=== PATIENT | female | born 1980 | race Caucasian/White ===

== ENCOUNTER 2018-03-26 12:17 | Emergency (ER) | payer SELFPAY ==
[2018-03-26 13:13] LABS: Absolute Lymphocytes (CBC) 1.8 K/uL (0.7-4.9); Absolute Monocytes 0.4 K/uL (0.1-1.3); Absolute Neutrophil 5.3 K/uL (1.8-8.0); Basophils % 0.8 % (0-1.3); Eosinophils % 2.3 % (0-4.4); Hematocrit 42.8 % (36.0-45.0); Lymphocytes % 23.3 % (15.3-44.8); MCH 30.6 pg (27.0-35.0); MPV 9.5 fL (7.6-11.3); Monocytes % 5.2 % (3.3-12.3); Protime INR 0.98
[2018-03-26 13:26] LABS: ALT/SGPT 20 U/L (12-78); AST/SGOT 14 U/L (15-37); Albumin 3.8 g/dL (3.4-5.0); Alkaline Phosphatase 60 U/L (45-117); BUN Blood Urea Nitrogen 10 mg/dL (7-18); Bicarbonate 26 mmol/L (21-32); Bilirubin Direct < 0.1 mg/dL (0-0.2); Bilirubin Total 0.3 mg/dL (0.2-1.0); Glucose Level 103 mg/dL (74-106); NT PRO-BNP 40 pg/mL (<125); Potassium 3.7 mmol/L (3.5-5.1); Protein, Total 7.2 g/dL (6.4-8.2); Sodium Level 140 mmol/L (136-145); Troponin (Emerg Dept Use Only) < 0.02 ng/mL (0.0-0.045)
--- NOTE | 2018-03-26 13:36 | RAD REPORT ---
EXAM DESCRIPTION: RAD - Chest Single View - 03/26/2018 1:21 pm CLINICAL HISTORY: CHEST PAIN Chest pain. COMPARISON: No comparisons FINDINGS: Portable technique limits examination quality. The lungs are grossly clear. The heart is normal in size. No displaced fractures. IMPRESSION: No acute intrathoracic process suspected.
[2018-03-26] MEDS ORDERED: LIDOCAINE VISCOUS 2% SOLN 15 ML UDC ONE (14:00)
[2018-03-26] MEDS ORDERED: MAGNES/ALUMIN/SIMET 30ML UCUP ONE (14:01)
[2018-03-26] MEDS ORDERED: KETOROLAC 30 MG/ML INJ ONE (14:01)
[2018-03-26 14:50] LABS: Urine Blood NEGATIVE (NEG); Urine Glucose NEGATIVE (NEG); Urine Protein NEGATIVE (NEG); Urine pH 6.5 (5.0-7.0)
--- NOTE | 2018-03-26 17:10 | ER ---
Nurse's Notes [facility] Name: Yolanda Saucedo Age: 37 yrs Sex: Female : 1980 Arrival Date: 03/26/2018 Time: 12:20 Bed 13 Private MD: None, None Diagnosis: Other chest pain Presentation: 03/26 12:23 Presenting complaint: Patient states: "I had a really weird fluttery sensation in my aj1 chest. It made me feel really weird. I do not feel right now. I'm not in pain. My arm and my jaw is tight. I have a light burning sensation in my chest" Reports tightness in left arm and jaw. Transition of care: patient was not received from another setting of care. Onset of symptoms was March 26, 2018 at 10:30. Risk Assessment: Do you want to hurt yourself or someone else? Patient reports no desire to harm self or others. Initial Sepsis Screen: Does the patient meet any 2 criteria? No. Patient's initial sepsis screen is negative. Does the patient have a suspected source of infection? No. Patient's initial sepsis screen is negative. Care prior to arrival: None. 12:23 Method Of Arrival: Ambulatory aj1 12:23 Acuity: MARILU 3 aj1 Triage Assessment: 12:26 General: Appears in no apparent distress. uncomfortable, Behavior is calm, cooperative, aj1 appropriate for age. Pain: Complains of pain in left jaw and left arm Pain currently is 2 out of 10 on a pain scale. Neuro: Level of Consciousness is awake, alert, obeys commands. Cardiovascular: Patient's skin is warm and dry. Respiratory: Airway is patent Respiratory effort is even, unlabored, Respiratory pattern is regular, symmetrical. 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 - Social history:: Smoking status: Patient/guardian denies using tobacco. - Ebola Screening: : Patient denies travel to an Ebola-affected area in the 21 days before illness onset. Screenin:23 Abuse screen: Denies threats or abuse. Denies injuries from another. Nutritional hj screening: No deficits noted. Tuberculosis screening: No symptoms or risk factors identified. Fall Risk None identified. Assessment: 12:23 General: Appears in no apparent distress. uncomfortable, Behavior is cooperative, hj appropriate for age, anxious. Pain: Complains of pain in chest and left arm and face and left jaw. Neuro: Level of Consciousness is awake, alert, obeys commands, Oriented to person, place, time, situation, Appropriate for age. Cardiovascular: Capillary refill < 3 seconds Patient's skin is warm and dry. Respiratory: Airway is patent Respiratory effort is even, unlabored, Respiratory pattern is regular, symmetrical. GI: No signs and/or symptoms were reported involving the gastrointestinal system. : No signs and/or symptoms were reported regarding the genitourinary system. EENT: No signs and/or symptoms were reported regarding the EENT system. Derm: No signs and/or symptoms reported regarding the dermatologic system. Musculoskeletal: No signs and/or symptoms reported regarding the musculoskeletal system. 13:36 Reassessment: Patient and/or family updated on plan of care and expected duration. Pain hj level reassessed. Patient is alert, oriented x 3, equal unlabored respirations, skin warm/dry/pink. awaiting results and POC;. 14:30 Reassessment: Patient and/or family updated on plan of care and expected duration. Pain hj level reassessed. Patient is alert, oriented x 3, equal unlabored respirations, skin warm/dry/pink. Patient states symptoms have improved. 15:10 Reassessment: Patient and/or family updated on plan of care and expected duration. Pain hj level reassessed. Patient is alert, oriented x 3, equal unlabored respirations, skin warm/dry/pink. awaiting POC;. Vital Signs: 12:26 BP 126 / 83; Pulse 78; Resp 18; Temp 98.0(TE); Pulse Ox 99% on R/A; Weight 90.72 kg aj1 (R); Height 5 ft. 0 in. (152.40 cm) (R); Pain 2/10; 13:38 BP 125 / 80; Pulse 74; Resp 18; Pulse Ox 100% on R/A; hj 14:51 BP 117 / 83; Pulse 60; Resp 16; Pulse Ox 99% on R/A; mt 15:10 BP 120 / 84; Pulse 66; Resp 18; Pulse Ox 100% on R/A; hj 12:26 Body Mass Index 39.06 (90.72 kg, 152.40 cm) aj1 ED Course: 12:20 Patient arrived in ED. mr 12:21 None, None is Private Physician. mr 12:25 Triage completed. aj1 12:26 Arm band placed on Patient placed in an exam room. aj1 12:26 Patient has correct armband on for positive identification. Placed in gown. Bed in low hj position. Call light in reach. Side rails up X 1. Adult w/ patient. 12:30 Initial lab(s) drawn, by me, sent to lab. EKG done, by ED staff, reviewed by Prakash VARGHESE. Inserted saline lock: 22 gauge in right antecubital area, using aseptic technique. Blood collected. 12:34 Prakash Christine PA is PHCP. cp 12:34 Prakash Go MD is Attending Physician. cp 12:35 Bryce Martinez, CHANG is Primary Nurse. hj 13:22 XRAY Chest (1 view) In Process Unspecified. EDMS 17:20 No provider procedures requiring assistance completed. IV discontinued, intact, hj bleeding controlled, No redness/swelling at site. Pressure dressing applied. Administered Medications: 13:49 Drug: TORadol 30 mg Route: IVP; Site: right antecubital; hj 14:13 Follow up: Response: No adverse reaction hj 13:49 Drug: GI Cocktail without - (Maalox Suspension 30 ml, Lidocaine Liquid 2 % 15 hj ml) Route: PO; 14:13 Follow up: Response: No adverse reaction Outcome: 17:10 Discharge ordered by MD. cp 17:21 Discharged to home ambulatory, with family. hj 17:21 Condition: stable 17:21 Discharge instructions given to patient, family, Instructed on discharge instructions, follow up and referral plans. medication usage, Demonstrated understanding of instructions, follow-up care, medications, Prescriptions given X 1. 17:21 Patient left the ED. hj Signatures: Dispatcher [employer] EDMS Annemarie Smith RN RN aj1 Jessy Rocha mr Bryce Martinez, Prakash Sarah RN, PA PA cp Thompson, Moriah mt
--- NOTE | 2018-03-26 17:10 | EDPHYS ---
Physician Documentation [facility] Name: Yolanda Saucedo Age: 37 yrs Sex: Female : 1980 Arrival Date: 03/26/2018 Time: 12:20 Bed 13 Private MD: None, None ED Physician Prakash Go HPI: 03/26 12:50 This 37 yrs old Female presents to ER via Ambulatory with complaints of Chest cp Discomfort. 12:50 The patient or guardian reports chest pain that is located primarily in the anterior cp chest wall. 12:50 The pain does not radiate. Duration: The patient or guardian reports a single episode, cp that is still ongoing, but improving. 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 - Social history:: Smoking status: Patient/guardian denies using tobacco. - Ebola Screening: : Patient denies travel to an Ebola-affected area in the 21 days before illness onset. ROS: 12:55 Constitutional: Negative for body aches, chills, fever, poor PO intake. cp 12:55 Eyes: Negative for injury, pain, redness, and discharge. cp 12:55 ENT: Negative for drainage from ear(s), ear pain, sore throat, difficulty swallowing, difficulty handling secretions. 12:55 Cardiovascular: Positive for chest pain, Negative for edema, palpitations. 12:55 Respiratory: Negative for cough, shortness of breath, wheezing. 12:55 Abdomen/GI: Negative for abdominal pain, nausea, vomiting, and diarrhea. 12:55 Back: Negative for radiated pain. 12:55 : Negative for urinary symptoms. 12:55 Skin: Negative for cellulitis, rash. 12:55 Neuro: Negative for altered mental status, dizziness, headache, numbness, weakness. 12:55 All other systems are negative. Exam: 12:50 ECG was reviewed by the Attending Physician. cp 13:02 Constitutional: The patient appears in no acute distress, alert, awake, cp non-diaphoretic, non-toxic, well developed, well nourished. 13:02 Head/Face: Normocephalic, atraumatic. Eyes: Pupils equal round and reactive to light, cp extra-ocular motions intact. Lids and lashes normal. Conjunctiva and sclera are non-icteric and not injected. Cornea within normal limits. Periorbital areas with no swelling, redness, or edema. ENT: Nares patent. No nasal discharge, no septal abnormalities noted. Tympanic membranes are normal and external auditory canals are clear. Oropharynx with no redness, swelling, or masses, exudates, or evidence of obstruction, uvula midline. Mucous membranes moist. Neck: Trachea midline, no thyromegaly or masses palpated, and no cervical lymphadenopathy. Supple, full range of motion without nuchal rigidity, or vertebral point tenderness. No Meningismus. Chest/axilla: Normal chest wall appearance and motion. Nontender with no deformity. No lesions are appreciated. 13:02 Cardiovascular: Rate: normal, Rhythm: regular, Pulses: Pulses are 2+ in right radial artery and left radial artery. Heart sounds: murmur, not appreciated, Edema: is not appreciated, JVD: is not appreciated. 13:02 Respiratory: the patient does not display signs of respiratory distress, Respirations: normal, no use of accessory muscles, no retractions, no splinting, no tachypnea, labored breathing, is not present, Breath sounds: are clear throughout, no decreased breath sounds, no stridor, no wheezing. 13:02 Abdomen/GI: Inspection: abdomen appears normal, Bowel sounds: active, all quadrants, Palpation: abdomen is soft and non-tender, in all quadrants. 13:02 Back: pain, is absent, ROM is normal. 13:02 Musculoskeletal/extremity: Exam is negative for calf tenderness, decreased range of motion, edema, injury. 13:02 Skin: cellulitis, is not appreciated, no rash present. 13:02 Neuro: Orientation: to person, place \T\ time. Mentation: is normal, Cerebellar function: is grossly normal, Motor: moves all fours, strength is normal, Sensation: is normal. 17:11 ECG was reviewed by the Attending Physician. Vital Signs: 12:26 BP 126 / 83; Pulse 78; Resp 18; Temp 98.0(TE); Pulse Ox 99% on R/A; Weight 90.72 kg aj1 (R); Height 5 ft. 0 in. (152.40 cm) (R); Pain 2/10; 13:38 BP 125 / 80; Pulse 74; Resp 18; Pulse Ox 100% on R/A; hj 14:51 BP 117 / 83; Pulse 60; Resp 16; Pulse Ox 99% on R/A; mt 15:10 BP 120 / 84; Pulse 66; Resp 18; Pulse Ox 100% on R/A; hj 12:26 Body Mass Index 39.06 (90.72 kg, 152.40 cm) aj1 MDM: 12:36 Patient medically screened. 17:08 Data reviewed: vital signs, nurses notes, lab test result(s), EKG, radiologic studies, cp plain films. 17:08 Test interpretation: by ED physician or midlevel provider: ECG, plain radiologic cp studies. 03/26 12:45 Order name: Basic Metabolic Panel; Complete Time: 13:32 03/26 12:45 Order name: CBC with Diff; Complete Time: 13:32 03/26 12:45 Order name: LFT's; Complete Time: 13:32 03/26 12:45 Order name: Magnesium; Complete Time: 13:32 03/26 12:45 Order name: NT PRO-BNP; Complete Time: 13:32 03/26 12:45 Order name: PT-INR; Complete Time: 13:32 03/26 12:45 Order name: Troponin (emerg Dept Use Only); Complete Time: 13:32 03/26 12:45 Order name: XRAY Chest (1 view); Complete Time: 13:50 03/26 13:50 Interpretation: Report review. 03/26 14:24 Order name: Urine Dipstick--Ancillary (enter results) 03/26 14:24 Order name: Urine --Ancillary (enter results) 03/26 15:29 Order name: Troponin I 03/26 12:45 Order name: EKG; Complete Time: 12:46 03/26 12:45 Order name: Cardiac monitoring; Complete Time: 12:49 03/26 12:45 Order name: EKG - Nurse/Tech; Complete Time: 12:49 03/26 12:45 Order name: IV Saline Lock; Complete Time: 14:13 03/26 12:45 Order name: Labs collected and sent; Complete Time: 14:13 cp 03/26 12:45 Order name: O2 Per Protocol; Complete Time: 12:50 cp 03/26 12:45 Order name: O2 Sat Monitoring; Complete Time: 12:50 cp 03/26 12:45 Order name: Urine Dipstick-Ancillary (obtain specimen); Complete Time: 14:12 cp 03/26 12:45 Order name: Urine Test (obtain specimen); Complete Time: 14:12 cp 03/26 15:29 Order name: EKG; Complete Time: 15:30 cp 03/26 15:29 Order name: EKG - Nurse/Tech; Complete Time: 16:27 cp EC:50 Rate is 64 beats/min. Rhythm is regular. OR interval is normal. QRS interval is cp prolonged at 104 msec. QT interval is normal. Interpreted by me. Reviewed by me. 17:11 Rate is 53 beats/min. Rhythm is regular. OR interval is normal. QRS interval is cp prolonged at 102 msec. QT interval is normal. Interpreted by me. Reviewed by me. Administered Medications: 13:49 Drug: TORadol 30 mg Route: IVP; Site: right antecubital; hj 14:13 Follow up: Response: No adverse reaction 13:49 Drug: GI Cocktail without - (Maalox Suspension 30 ml, Lidocaine Liquid 2 % 15 hj ml) Route: PO; 14:13 Follow up: Response: No adverse reaction Disposition: 03/27 08:26 Co-signature as Attending Physician, Prakash Go MD I agree with the assessment and [facility] plan of care. Disposition: 03/26/18 17:10 Discharged to Home. Impression: Other chest pain. - Condition is Stable. - Discharge Instructions: Nonspecific Chest Pain, Aspirin and Your Heart. - Prescriptions for Protonix 40 mg Oral Tablet - take 1 tablet by ORAL route once daily; 30 tablet. - Medication Reconciliation Form, Thank You Letter, Antibiotic Education, Prescription Opioid Use form. - Follow up: Private Physician; When: 2 - 3 days; Reason: Recheck today's complaints. - Problem is new. - Symptoms have improved. Signatures: Dispatcher [employer] EDVA Annemarie Smith RN RN aj Prakash Go MD MD cha Joaquin, Henry, RN RN Prakash Madrid PA PA cp Corrections: (The following items were deleted from the chart) 03/26 14: 14:25 UA MICROSCOPIC+U.LAB.BRZ ordered. EDMS EDMS 17:21 17:10 03/26/2018 17:10 Discharged to Home. Impression: Other chest pain. Condition is hj Stable. Forms are Medication Reconciliation Form, Thank You Letter, Antibiotic Education, Prescription Opioid Use. Follow up: Private Physician; When: 2 - 3 days; Reason: Recheck today's complaints. Problem is new. Symptoms have improved. cp 03/27 01:24 03/26 12:50 The chest pain is described as burning, cp cp
[2018-03-26 18:25] VITALS: TEMP 98
[2018-03-26 18:30] VITALS: BP 120/84; O2SAT 100
--- NOTE | 2018-03-27 07:36 | EKG ---
Test Date: 2018-03-26 Test Time: 16:13:47 Full Stack Developer: SHYANN MEASUREMENT RESULTS: Intervals: Rate: 53 RI: 148 QRSD: 102 QT: 426 QTc: 399 [place]: P: 56 RI: 148 QRS: 74 T: 50 INTERPRETIVE STATEMENTS: Sinus bradycardia Otherwise normal ECG No previous ECG available for comparison Electronically Signed On 03-27-18 07:34:08 MANAGER LOGISTIC by Mark Camacho
--- NOTE | 2018-03-27 07:37 | EKG ---
Test Date: 2018-03-26 Test Time: 12:44:52 Mammographer: TOBY MEASUREMENT RESULTS: Intervals: Rate: 64 PA: 150 QRSD: 104 QT: 406 QTc: 418 [place]: P: 59 PA: 150 QRS: 75 T: 51 INTERPRETIVE STATEMENTS: Normal sinus rhythm Normal ECG No previous ECG available for comparison Electronically Signed On 03-27-18 07:36:50 SENIOR ASSISTANT MANAGER by Mark Camacho
== END 2018-03-26 17:21 | disposition home or self-care (01) ==
LOC: ER 12:17
DX: R07.89 Other chest pain (principal)
CPT/HCPCS: 36415; 71045; 80048; 80076; 81003; 81025; 83735; 83880; 84484; 85025; 85610; 93005; 96374; 99284

== ENCOUNTER → 2023-05-26 | Emergency (ER) | payer SELFPAY ==
[~2023-05-26] MED LIST: MORPHINE 4 MG/ML SYR ONE; ONDANSETRON 4 MG/2 ML VIAL ONE
--- OUTSIDE RECORDS SUMMARY | 2023-05-26 13:27 | XMS REPORT | Continuity of Care Document ---
Author Name Unknown Address [address] [place] [address] [facility] Address [address] [place] [address] Care Team Providers Care Gate Watchman Name Role Phone Pcp, Patient Does Not Have A Primary Care Physic tylor Brian Molina MD Attending Clinician + [phone] JIMBO BOYD Attending Clinician Unavailable Jimbo Boyd MD Attending Clinician [phone] BRIAN MOLINA Attending Clinician Unavaila [facility] Provider, [facility] Attending Clinician Un available [facility] Anaya DO Attending Clinician [phone] MARCIO KEITA Attending Clinician Unavailable Karen Wilkins Attending Clinician [phone] Doctor Unassigned, [place] Attending Clinician U Miriam Bautista MD Attending Clinician [phone] Marcio Keita MD Attending Clinician [phone] Jose Juan [facility] Resident Attending Clinician UnavailLisa Solomon Attending Clinician [phone]- [phone] JIMBO BOYD Admitting Clinician Unavailable Payers Payer Name Policy Type Policy Number Effective Date Expirati on Date Source Problems Condition Name Condition Details Condition Category Status Onset Date Resolution Date Last Treatment Date Treating Clinician Comments Source Flatulence , eructation and gas pain Flatulence , eructation and gas pain Disease Active 11-23 00:00: 00 [facility] GERD (gastroeso phageal reflux disease) GERD (gastroeso phageal reflux disease) Disease Active 11-23 00:00: 00 [facility] Obesity (BMI 30-39.9) Obesity (BMI 30-39.9) Disease Active 01-07 00:00: 00 [facility] Endometrio ma Endometrio ma Disease Active 07-27 00:00: 00 [facility] Endometrio ma Endometrio ma Disease Active 07-27 00:00: 00 [facility] S/P hysterecto my S/P hysterecto my Disease Active 07-27 00:00: 00 [facility] Adnexal mass Adnexal mass Disease Active 10-14 00:00: 00 [facility] Anxiety Anxiety Disease Active 10-14 00:00: 00 [facility] Depression Depression Disease Active 10-14 00:00: 00 [facility] Complex ovarian cyst Complex ovarian cyst Disease Active 10-14 00:00: 00 [facility] Mixed hyperlipid emia Mixed hyperlipid emia Disease Active [facility] Impaired fasting glucose Impaired fasting glucose Disease Active [facility] Allergies, Adverse Reactions, Alerts Allergy Name Allergy Type Status Severity Reaction(s) Onset Date Inactive Date Treating Clinician Comments Source Hydrocod one Propensi ty to adverse reaction s Active Nausea and/or Vomiting 10-02 00:00: 00 "make me sick" [facility] HYDROCOD ONE DRUG INGREDI Active N/V 10-02 00:00: 00 [facility] Social History Social Habit Start Date Stop Date Quantity Comments Source [facility] to SARS-CoV-2 (event) 2021-02-08 00:00:00 2021-03-10 22:45:00 Not sure [facility] History of Social function 2020-11-18 00:00:00 2020-11-18 00:00:00 [facility] Alcohol intake 2019-08-29 00:00:00 2019-08-29 00:00:00 [facility] Tobacco use and exposure 2018-06-11 00:00:00 2018-06-11 00:00:00 Smokeless tobacco non-user [facility] Sex Assigned At 1980 00:00:00 1980 00:00:00 [facility] Smoking Status Start Date Stop Date Source Never smoked tobacco [facility] Medications Ordered Medication Name Filled Medication Name Start Date Stop Date Current Medication? Ordering Clinician Indication Dosage Frequency Signature (SIG) Comments Components Source FLUTICASONE PROPIONATE 50 mcg/actuati on nasal spray 2020-05 00:00: 00 Yes [id number] INSTILL TWO (2) SPRAYS INTO EACH NOSTIRL DAILY. [facility] maalox:diph enhydrAMINE :lidocaine 2 % viscous 1:1:1 (FIRST-MOUT HWASH BLM) oral suspension 15 mL 2020-05 08:00: 00 03-11 06:57 :00 No 15mL 15 mL, Oral, ONCE, 1 dose, On Tue03/11/21 at 0200, SUSAN [facility] traZODone 50 mg tablet 11-18 00:00: 00 Yes [id number] 25mg Take 0.5-1 tablets by mouth at bedtime as needed for Insomnia. [facility] famotidine 20 mg tablet 11-18 00:00: 00 Yes [id number] 20mg Take 1 tablet by mouth 2 (two) times daily. [facility] Simethicone 180 mg Cap 11-18 00:00: 00 Yes [id number] 1{capsu le} Take 1 capsule by mouth 2 (two) times daily as needed (gas). [facility] traZODone 50 mg tablet 11-18 00:00: 00 Yes [id number] 25mg Take 0.5-1 tablets by mouth at bedtime as needed for Insomnia. [facility] famotidine 20 mg tablet 11-18 00:00: 00 Yes [id number] 20mg Take 1 tablet by mouth 2 (two) times daily. [facility] Sim[facility]one 180 mg Cap 1-0 7-20 00:00: 00 Yes [id number] 1{capsu le} Take 1 capsule by mouth 2 (two) times daily as needed (gas). [facility] traZODone 50 mg tablet 1-0 7-20 00:00: 00 Yes [id number] 25mg Take 0.5-1 tablets by mouth at bedtime as needed for Insomnia. [facility] fam[facility] mg tablet 2020-0 7-20 00:00: 00 Yes [id number] 20mg Take 1 tablet by mouth 2 (two) times daily. [facility] Simethicone 180 mg Cap 2020-0 7-20 00:00: 00 Yes [id number] 1{capsu le} Take 1 capsule by mouth 2 (two) times daily as needed (gas). [facility] traZODone 50 mg tablet 2020-0 7-20 00:00: 00 Yes [id number] 25mg Take 0.5-1 tablets by mouth at bedtime as needed for Insomnia. [facility] famotidine 20 mg tablet 1-0 7-20 00:00: 00 Yes [id number] 20mg Take 1 tablet by mouth 2 (two) times daily. [facility] Simethicone 180 mg Cap 2020-0 7-20 00:00: 00 Yes [id number] 1{capsu le} Take 1 capsule by mouth 2 (two) times daily as needed (gas). [facility] traZODone 50 mg tablet 1-0 7-20 00:00: 00 Yes [id number] 25mg Take 0.5-1 tablets by mouth at bedtime as needed for Insomnia. [facility] famotidine 20 mg tablet 1-0 7-20 00:00: 00 Yes [id number] 20mg Take 1 tablet by mouth 2 (two) times daily. [facility] Simethicone 180 mg Cap 1-0 7-20 00:00: 00 Yes [id number] 1{capsu le} Take 1 capsule by mouth 2 (two) times daily as needed (gas). [facility] hydrOXYzine 10 mg tablet 1-0 3-15 00:00: 00 Yes [id number] 10mg Take 1 tablet by mouth every 8 (eight) hours as needed for Anxiety. [facility] hydrOXYzine 10 mg tablet 1-0 3-15 00:00: 00 Yes [id number] 10mg Take 1 tablet by mouth every 8 (eight) hours as needed for Anxiety. [facility] hydrOXYzine 10 mg tablet 1-0 3-15 00:00: 00 Yes [id number] 10mg Take 1 tablet by mouth every 8 (eight) hours as needed for Anxiety. [facility] hydrOXYzine 10 mg tablet 1-0 3-15 00:00: 00 Yes [id number] 10mg Take 1 tablet by mouth every 8 (eight) hours as needed for Anxiety. [facility] hydrOXYzine 10 mg tablet 1-0 3-15 00:00: 00 Yes [id number] 10mg Take 1 tablet by mouth every 8 (eight) hours as needed for Anxiety. [facility] hydrOXYzine 10 mg tablet 1-0 3-15 00:00: 00 Yes [id number] 10mg Take 1 tablet by mouth every 8 (eight) hours as needed for Anxiety. [facility] hydrOXYzine 10 mg tablet 1-0 3-15 00:00: 00 Yes [id number] 10mg Take 1 tablet by mouth every 8 (eight) hours as needed for Anxiety. [facility] diphenhydra mine HCl (BENADRYL ALLERGY ORAL) 2019-05 21:57: 28 Yes Take by mouth. [facility] diphenhydra mine HCl (BENADRYL ALLERGY ORAL) 2019-05 21:57: 28 Yes Take by mouth. [facility] diphenhydra mine HCl (BENADRYL ALLERGY ORAL) 2019-05 21:57: 28 Yes Take by mouth. [facility] diphenhydra mine HCl (BENADRYL ALLERGY ORAL) 2019-05 21:57: 28 Yes Take by mouth. [facility] diphenhydra mine HCl (BENADRYL ALLERGY ORAL) 2019-05 21:57: 28 Yes Take by mouth. [facility] diphenhydra mine HCl (BENADRYL ALLERGY ORAL) 2019-05 21:57: 28 Yes Take by mouth. [facility] diphenhydra mine HCl (BENADRYL ALLERGY ORAL) 2019-05 21:57: 28 Yes Take by mouth. [facility] diphenhydra mine HCl (BENADRYL ALLERGY ORAL) 2019-05 15:57: 28 Yes Take by mouth. [facility] diphenhydra mine HCl (BENADRYL ALLERGY ORAL) 2019-05 15:57: 28 Yes Take by mouth. [facility] meclizine 25 mg tablet 2019-05 00:00: 00 Yes [id number] 25mg Take 1 tablet by mouth 3 (three) times daily as needed for Dizziness. [facility] fluticasone propionate 50 mcg/actuati on nasal spray 2019-05 00:00: 00 Yes [id number] 2{spray } Use 2 Sprays in each nostril daily. [facility] meclizine 25 mg tablet 2019-05 00:00: 00 Yes [id number] 25mg Take 1 tablet by mouth 3 (three) times daily as needed for Dizziness. [facility] fluticasone propionate 50 mcg/actuati on nasal spray 2019-05 00:00: 00 Yes [id number] 2{spray } Use 2 Sprays in each nostril daily. [facility] meclizine 25 mg tablet 2019-05 00:00: 00 Yes [id number] 25mg Take 1 tablet by mouth 3 (three) times daily as needed for Dizziness. [facility] fluticasone propionate 50 mcg/actuati on nasal spray 2019-05 00:00: 00 Yes [id number] 2{spray } Use 2 Sprays in each nostril daily. [facility] meclizine 25 mg tablet 2019-05 00:00: 00 Yes [id number] 25mg Take 1 tablet by mouth 3 (three) times daily as needed for Dizziness. [facility] fluticasone propionate 50 mcg/actuati on nasal spray 2019-05 00:00: 00 Yes [id number] 2{spray } Use 2 Sprays in each nostril daily. [facility] meclizine 25 mg tablet 2019-05 00:00: 00 Yes [id number] 25mg Take 1 tablet by mouth 3 (three) times daily as needed for Dizziness. [facility] fluticasone propionate 50 mcg/actuati on nasal spray 2019-05 00:00: 00 Yes [id number] 2{spray } Use 2 Sprays in each nostril daily. [facility] meclizine 25 mg tablet 2019-05 00:00: 00 Yes [id number] 25mg Take 1 tablet by mouth 3 (three) times daily as needed for Dizziness. [facility] fluticasone propionate 50 mcg/actuati on nasal spray 2019-05 00:00: 00 Yes [id number] 2{spray } Use 2 Sprays in each nostril daily. [facility] meclizine 25 mg tablet 2019-05 00:00: 00 Yes [id number] 25mg Take 1 tablet by mouth 3 (three) times daily as needed for Dizziness. [facility] fluticasone propionate 50 mcg/actuati on nasal spray 2019-05 00:00: 00 Yes [id number] 2{spray } Use 2 Sprays in each nostril daily. [facility] meclizine 25 mg tablet 2019-05 00:00: 00 Yes [id number] 25mg Take 1 tablet by mouth 3 (three) times daily as needed for Dizziness. [facility] fluticasone propionate 50 mcg/actuati on nasal spray 2019-05 00:00: 00 Yes [id number] 2{spray } Use 2 Sprays in each nostril daily. [facility] meclizine 25 mg tablet 2019-05 00:00: 00 Yes [id number] 25mg Take 1 tablet by mouth 3 (three) times daily as needed for Dizziness. [facility] fluticasone propionate 50 mcg/actuati on nasal spray 2019-05-12 00:00: 00 03-19 00:00 :00 No [id number] 2{spray } Use 2 Sprays in each nostril daily. [facility] hydrOXYzine 10 mg tablet 2019-0 -08 00:00: 00 Yes [id number] 10mg Take 1 tablet by mouth every 8 (eight) hours as needed for Anxiety. [facility] hydrOXYzine 10 mg tablet 2019-0 -08 00:00: 00 Yes [id number] 10mg Take 1 tablet by mouth every 8 (eight) hours as needed for Anxiety. [facility] hydrOXYzine 10 mg tablet 2019-0 01-07 00:00: 00 Yes [id number] 10mg Take 1 tablet by mouth every 8 (eight) hours as needed for Anxiety. [facility] hydrOXYzine 10 mg tablet 2019-0 -08 00:00: 00 Yes [id number] 10mg Take 1 tablet by mouth every 8 (eight) hours as needed for Anxiety. [facility] hydrOXYzine 10 mg tablet 2019-0 01-07 00:00: 00 Yes [id number] 10mg Take 1 tablet by mouth every 8 (eight) hours as needed for Anxiety. [facility] hydrOXYzine 10 mg tablet 2019-0 08 00:00: 00 Yes [id number] 10mg Take 1 tablet by mouth every 8 (eight) hours as needed for Anxiety. [facility] hydrOXYzine 10 mg tablet 2019-0 -08 00:00: 00 Yes [id number] 10mg Take 1 tablet by mouth every 8 (eight) hours as needed for Anxiety. [facility] hydrOXYzine 10 mg tablet 2019-0 -08 00:00: 00 Yes [id number] 10mg Take 1 tablet by mouth every 8 (eight) hours as needed for Anxiety. [facility] hydrOXYzine 10 mg tablet 2019-0 -08 00:00: 00 Yes [id number] 10mg Take 1 tablet by mouth every 8 (eight) hours as needed for Anxiety. [facility] hydrOXYzine 10 mg tablet 2019-0 -08 00:00: 00 Yes [id number] 10mg Take 1 tablet by mouth every 8 (eight) hours as needed for Anxiety. [facility] hydrOXYzine 10 mg tablet 01-07 00:00: 00 Yes [id number] 10mg Take 1 tablet by mouth every 8 (eight) hours as needed for Anxiety. [facility] hydrOXYzine 10 mg tablet 01-07 00:00: 00 07-14 00:00 :00 No [id number] 10mg Take 1 tablet by mouth every 8 (eight) hours as needed for Anxiety. [facility] No known medications No Un dangelo [facility] No known medications No Un dangelo [facility] No known medications No Un dangelo [facility] No known medications [facility] Vital Signs Vital Name Observation Time Observation Value Comments S ource Systolic blood pressure 2021-03-11 07:15:00 149 mm[Hg] [facility] Diastolic blood pressure 2021-03-11 07:15:00 89 mm[Hg] [facility] Heart rate 2021-03-11 07:15:00 71 /min [facility] Respiratory rate 2021-03-11 07:15:00 22 /min [facility] Oxygen saturation in Arterial blood by Pulse oximetry 2021-03-11 07:15:00 97 /min [facility] Body temperature 2021-03-11 04:27:00 37.06 Kelly [facility] Body height 2021-03-11 04:27:00 152.4 cm [facility] Body weight 2021-03-11 04:27:00 95.255 kg [facility] BMI 2021-03-11 04:27:00 41.01 kg/m2 [facility] Systolic blood pressure 2020-12-07 22:08:00 133 mm[Hg] [facility] Diastolic blood pressure 2020-12-07 22:08:00 90 mm[Hg] [facility] Heart rate 2020-12-07 22:08:00 82 /min [facility] Body temperature 2020-12-07 22:08:00 36 Kelly [facility] Respiratory rate 2020-12-07 22:08:00 18 /min [facility] Body height 2020-12-07 22:08:00 152.4 cm [facility] Body weight 2020-12-07 22:08:00 97.977 kg [facility] BMI 2020-12-07 22:08:00 42.18 kg/m2 [facility] Oxygen saturation in Arterial blood by Pulse oximetry 2020-12-07 22:08:00 97 /min [facility] Systolic blood pressure 2020-11-18 20:35:00 122 mm[Hg] [facility] Diastolic blood pressure 2020-11-18 20:35:00 78 mm[Hg] [facility] Heart rate 2020-11-18 20:35:00 80 /min [facility] Body height 2020-11-18 20:35:00 152.4 cm [facility] Body weight 2020-11-18 20:35:00 97.977 kg [facility] BMI 2020-11-18 20:35:00 42.18 kg/m2 [facility] Systolic blood pressure 2020-03-13 21:56:00 113 mm[Hg] [facility] Diastolic blood pressure 2020-03-13 21:56:00 78 mm[Hg] [facility] Heart rate 2020-03-13 21:56:00 71 /min [facility] Body temperature 2020-03-13 21:56:00 36.56 Kelly [facility] Body height 2020-03-13 21:56:00 152.4 cm [facility] Body weight 2020-03-13 21:56:00 90.266 kg [facility] BMI 2020-03-13 21:56:00 38.86 kg/m2 [facility] Body weight 2020-02-21 15:58:00 89.812 kg [facility] BMI 2020-02-21 15:58:00 38.67 kg/m2 [facility] Systolic blood pressure 2020-02-21 15:58:00 117 mm[Hg] [facility] Diastolic blood pressure 2020-02-21 15:58:00 84 mm[Hg] [facility] Heart rate 2020-02-21 15:58:00 85 /min [facility] Body temperature 2020-02-21 15:58:00 36.44 Kelly [facility] Body height 2020-02-21 15:58:00 152.4 cm [facility] Systolic blood pressure 2020-01-08 20:03:00 125 mm[Hg] [facility] Diastolic blood pressure 2020-01-08 20:03:00 85 mm[Hg] [facility] Heart rate 2020-01-08 20:03:00 84 /min [facility] Body temperature 2020-01-08 20:03:00 36.28 Kelly [facility] Body height 2020-01-08 20:03:00 152.4 cm Univ [facility] Body weight 2020-01-08 20:03:00 91.173 kg [facility] BMI 2020-01-08 20:03:00 39.26 kg/m2 [facility] Systolic blood pressure 2019-12-28 15:42:00 118 mm[Hg] [facility] Diastolic blood pressure 2019-12-28 15:42:00 72 mm[Hg] [facility] Heart rate 2019-12-28 15:42:00 85 /min [facility] Body temperature 2019-12-28 15:42:00 37.17 Kelly [facility] Respiratory rate 2019-12-28 15:42:00 21 /min [facility] Body height 2019-12-28 15:42:00 152.4 cm Univ [facility] Body weight 2019-12-28 15:42:00 89.472 kg Univ [facility] BMI 2019-12-28 15:42:00 38.52 kg/m2 [facility] Systolic blood pressure 2019-08-29 21:00:00 121 mm[Hg] [facility] Diastolic blood pressure 2019-08-29 21:00:00 83 mm[Hg] [facility] Heart rate 2019-08-29 21:00:00 78 /min [facility] Respiratory rate 2019-08-29 21:00:00 17 /min [facility] Oxygen saturation in Arterial blood by Pulse oximetry 2019-08-29 21:00:00 97 /min [place] [facility] Body temperature 2019-08-29 20:54:00 37.33 Kelly [facility] Body height 2019-08-29 20:54:00 152.4 cm [facility] Body weight 2019-08-29 20:54:00 90.719 kg [facility] BMI 2019-08-29 20:54:00 39.06 kg/m2 [facility] Procedures Procedure Date / Time Performed Performing Clinician Source FREE T4 2021-03-11 06:25:00 [facility] COMP. METABOLIC PANEL (63314) 2021-03-11 05:25:00 Jimbo Boyd [facility] XR CHEST 1 VW 2021-03-11 04:59:36 Jimbo Boyd [facility] TROPONIN I 2021-03-11 04:43:00 Jimbo Boyd [facility] THYROID STIMULATING HORMONE 2021-03-11 04:43:00 [facility] (32747) (ALB,T.PRO,BILI T,BU/BC,ALT,AST,ALK PHOS) 2021-03-11 04:43:00 Jimbo Boyd [facility] CBC WITH DIFF 2021-03-11 04:43:00 Jimbo Boyd [facility] URINALYSIS 2021-03-11 04:43:00 [facility] N-TERMINAL PRO-BNP 2021-03-11 04:43:00 Oliver [facility] URINE DRUG (IMMUNOASSAY) - COMPREHENSIVE DRUG SCREEN W/O REFLEX 2021-03-11 04:43:00 Oliver Jimbo [facility] CONSENT/REFUSAL FOR DIAGNOSIS AND TREATMENT 2021-03-11 04:16:06 Doctor Unassigned, [place] [facility] EXTERNAL PROVIDER RECORDS 2020-03-10 06:01:00 Doctor Unassigned, [place] [facility] BI SCREENING TOMOSYNTHESIS BILATERAL 2020-02-19 15:19:00 Miriam Rose [facility] ASSIGNMENT OF BENEFITS 2019-12-28 15:26:27 Docto r Unassigned, [place] [facility] Encounters Start Date/Time End Date/Time Encounter Type Admission Type Attending [facility] Care Facility Care Department Encounter ID Source 2021-02-26 19:25:44 Emergency [facility] [id number] [facility] 2021-03-18 00:00:00 2021-03-18 00:00:00 Refill Brian Molina [facility] [id number] [facility] 2021-03-10 22:29:00 2021-03-11 01:59:00 Emergency X JIMBO BOYD [facility] ERT [id number] [facility] 2021-03-10 22:29:00 2021-03-11 01:59:00 Emergency BoydRigobertoJimbo [facility] ..[id number] [facility] 2021-02-20 11:00:00 2021-02-20 11:00:00 Outpatient R BRIAN MOLINA [facility] [id number] [facility] 2020-12-07 16:43:22 2020-12-07 17:03:22 Urgent Care Provider, [facility] Brian Molina [facility] ..[id number] [facility] 2020-12-07 16:40:00 2020-12-07 16:40:00 Outpatient R BRIAN MOLINA [facility] [id number] [facility] 2020-11-18 15:03:33 2020-11-18 16:30:52 Office Visit Brian Molina [facility] [id number] [facility] 2020-11-18 15:15:00 2020-11-18 15:15:00 [id number] [facility] 2020 00:00:00 2020 00:00:00 Patient Outreach [facility] Anaya [facility] [id number] [id number] [facility] 2020-07-14 00:00:00 2020-07-14 00:00:00 Telephone Brian Molina [facility] [id number] [id number] [facility] 2020-05-12 15:30:00 2020-05-12 15:30:00 Outpatient R JESSEBRIAN PACHECO [facility] [id number] [facility] 2020-04-28 16:30:00 2020-04-28 16:30:00 [facility] [id number] [facility] 2020-03-26 00:00:00 2020-03-26 00:00:00 Outpatient R MARCIO KEITA [facility] [id number] [facility] 2020-03-25 00:00:00 2020-03-25 00:00:00 Telephone Karen Rodrigues [facility] [id number] [id number] [id number] [facility] 2020-03-13 15:17:15 2020-03-13 16:21:00 Office Visit Brian Molina [facility] 1.114 [id number] [id number] [facility] 2020-03-13 15:30:00 2020-03-13 15:30:00 Outpatient R BRIAN MOLINA [facility] [id number] [facility] 2020-03-10 00:00:00 2020-03-10 00:00:00 Orders Only Doctor Unassigned, [place] [facility] 1.114 [id number] [id number] [id number] [facility] 2020-03-10 00:00:00 2020-03-10 00:00:00 Telephone Brian Molina [facility] 1.114 [id number] [id number] [id number] [facility] 2020-02-21 10:49:52 2020-02-21 11:22:48 Office Visit Brian Molina [facility] 1.114 [id number] [id number] [facility] 2020-02-21 11:00:00 2020-02-21 11:00:00 Outpatient R BRIAN MOLINA [facility] [id number] [facility] 2020-02-20 00:00:00 2020-02-20 00:00:00 Telephone Miriam Rose [facility] 1.114 350.1.13.10 4.2.7.2.686 [id number] [facility] 2020-02-19 10:05:20 2020-02-19 23:59:00 Hospital Encounter KeitaMarcio bustillos [facility] 1..114 350.1.13.10 4.2.7.2.686 [id number] [facility] 2020-02-19 00:00:00 2020-02-19 00:00:00 Outpatient R MARCIO KEITA [facility] [id number] [facility] 2020-02-06 00:00:00 2020-02-06 00:00:00 [facility] 1.840.114 350.1.13.10 4.2.7.2.686 [id number] [facility] 2020-01-30 00:00:00 2020-01-30 00:00:00 Outpatient R MARCIO KEITA [facility] [id number] [facility] 2020-01-08 14:23:27 2020-01-08 15:44:11 Office Visit Brian Molina [facility] Office Building One 1.840.114 350.1.13.10 4.2.7.2.686 [id number] [facility] 2020-01-08 14:45:00 2020-01-08 14:45:00 Outpatient R DANISHA MOLINAMEGHAN [facility] [id number] [facility] 2019-12-28 10:29:11 2019-12-28 11:38:31 Office Visit [facility] Resident Marcio Keita [facility] 1..114 350.1.13.10 4.2.7.2.686 [id number] [facility] 2019-12-28 10:30:00 2019-12-28 10:30:00 Outpatient R [facility] [id number] [facility] 2019-12-28 00:00:00 2019-12-28 00:00:00 Orders Only Doctor Unassigned, [place] [facility] 1..114 350.1.13.10 4.2.7.2.686 [id number] [facility] 2019-12-27 00:00:00 2019-12-27 00:00:00 Patient Secure Msg Doctor Unassigned, [place] [facility] 1.0.114 350.1.13.10 4.2.7.2.686 [id number] [facility] 2019-08-29 15:58:33 2019-08-29 17:03:00 Emergency Chery, Lisa R [facility] 1..114 350.1.13.10 4.2.7.2.686 [id number] [facility] Results Test Description Test Time Test Comments Results Result Co m[facility] (49466)2021-03-11 06:30:47* Test Item Value Reference Range Interpretation Comme nts NA (test code = 2806429246) 137 mmol/L 135-145 K (test code = 3899357339) 3.4 mmol/L 3.5-5.0 L CL (test code = 8194160770) 105 mmol/L 98-108 CO2 TOTAL (test code = 3361780546) 27 mmol/L 23-31 AGAP (test code = 0386684274) 2-16 BUN (test code = 7124076073) 11 mg/dL 7-23 GLUCOSE (test code = 8961581242) 101 mg/dL 70-110 CREATININE (test code = 7988830656) 0.83 mg/dL 0.50-1.04 TOTAL BILI (test code = 7898566245) 0.5 mg/dL 0.1-1.1 CALCIUM (test code = 5993803480) 10.2 mg/dL 8.6-10.6 T PROTEIN (test code = 8761691902) 7.3 g/dL 6.3-8.2 ALBUMIN (test code = 9064264282) 4.2 g/dL 3.5-5.0 ALK PHOS (test code = 1259277008) 61 U/L 34-122 ALTv (test code = 1742-6) 17 U/L 5-35 AST(SGOT) (test code = 8038188738) 22 U/L 13-40 eGFR (test code = 8470001920) mL/min/1.73m2 KIM (test code = KIM) Association of Glomerular Filtration Rate (GFR) and Staging of Kidney Disease* + --+ --+ ------+| GFR (mL/min/1.73 m2) ?| With Kidney Damage ?| ?Without Kidney Damage+ --------+ --------+ +| ?>90 ?| ?Stage one ?| ? Normal ?+ ---+ ---+ -------+| ?60-89 ?| ?Stage two ?| ? Decreased GFR ? + --+ --+ ------+| ?30-59 ?| ?Stage three ?| ? Stage three ? + --+ --+ ------+| ?15-29 ?| ?Stage four ? | ? Stage four ?+ ---+ ---+ -------+| ?<15 (or dialysis) ? ?| ?Stage five ? | ? Stage five ?+ ---+ ---+ -------+ *Each stage assumes the associated GFR level has been in effect for at least three months. ?Stages 1 to 5, with or without kidney disease, indicate chronic kidney disease. Notes: Determination of stages one and two (with eGFR >59mL/min/1.73 m2) requires estimation of kidney damage for at least three months as defined by structural or functional abnormalities of the kidney, manifested by either:Pathological abnormalities or Markers of kidney damage (including abnormalities in the composition of the blood or urine or abnormalities in imaging tests). Lab Interpretation (test code = 99039-9) [facility]normal [facility] [id number] 05:48:59 * Test Item Value Reference Range Interpretation Comme nts TSH (test code = 4642601070) See_Comment H [Automated [employer]] The system which generated this result transmitted reference range: 0.45 - 4.70 mIU/L. The reference range was not used to interpret this result as normal/abnormal. Lab Interpretation (test code = 38145-3) [facility]normal [facility] Center[facility] [id number] 05:30:57* Test Item Value Reference Range Interpretation Comments TROPONIN I (test code = 9410322515) <0.012 See_Comment [Automated message] The system which generated this result transmitted reference range: <=0.034 ng/mL. The reference range was not used to interpret this result as normal/abnormal. KIM (test code = IKM) Reference (Normal) Range (defined by the 99th percentile reference limit): <= 0.034 ng/mL Note: Cardiac troponin begins to rise 3-4 hours after the onset of ischemia. Repeat in 4-6 hours if the sample was drawn within 3-4 hours of the onset of the symptom and found normal. Diagnosis of myocardial injury is made with acute changes in cTn concentrations with at least one serial sample above the 99th percentile upper reference limit (URL), taken together with the patient's clinical presentation. Biotin has been reported to cause a negative bias, interpret results relative to patient's use of biotin. Lab Interpretation (test code = 83254-0) Normal [facility]AL [id number] 05:28:00* Test Item Value Reference Range Interpretation Comme nts NT-proBNP (test code = 5790923864) 70 pg/mL See_Comment [Automated message] The system which generated this result transmitted reference range: <=125. The reference range was not used to interpret this result as normal/abnormal. KIM (test code = KIM) Biotin has been reported to cause a negative bias, interpret results relative to patient's use of biotin. Lab Interpretation (test code = 36192-7) Normal [facility] (82990[facility] (ALB,T.PRO,BILI T,BU/BC,ALT,AST,ALK PHOS)2021-03-11 05:17:35* Test Item Value Reference Range Interpretation Comme nts TOTAL BILI (test code = 4712258401) 0.5 mg/dL 0.1-1.1 BILI UNCON (test code = 8174411388) 0.3 mg/dL 0.1-1.1 BILI CONJ (test code = 1627240308) 0.0 mg/dL 0.0-0.3 T PROTEIN (test code = 8945170635) 8.0 g/dL 6.3-8.2 ALBUMIN (test code = 3763652288) 4.5 g/dL 3.5-5.0 ALK PHOS (test code = 3779940004) 71 U/L 34-122 ALTv (test code = 1742-6) 19 U/L 5-35 AST(SGOT) (test code = 3413463102) 20 U/L 13-40 Lab Interpretation (test cod e = 67980-1) Normal [facility] WITH [id number] 05:06:34* Test Item Value Reference Range Interpretation Comme nts WBC (test code = 6690-2) See_Comment [Automated messa ge] The system which generated this result transmitted reference range: 4.30 - 11.10 10*3/?L. The reference range was not used to interpret this result as normal/abnormal. RBC (test code = 789-8) See_Comment [Automated messa ge] The system which generated this result transmitted reference range: 3.93 - 5.25 10*6/?L. The reference range was not used to interpret this result as normal/abnormal. HGB (test code = 718-7) 15.0 g/dL 11.6-15.0 HCT (test code = 4544-3) 44.2 % 35.7-45.2 MCV (test code = 787-2) 86.0 fL 80.6-95.5 MCH (test code = 785-6) 29.2 pg 25.9-32.8 MCHC (test code = 786-4) 33.9 g/dL 31.6-35.1 RDW-SD (test code = 67927-3) 39.5 fL 39.0-49.9 RDW-CV (test code = 788-0) 12.6 % 12.0-15.5 PLT (test code = 777-3) See_Comment [Automated messa ge] The system which generated this result transmitted reference range: 166 - 358 10*3/?L. The reference range was not used to interpret this result as normal/abnormal. MPV (test code = 96106-0) 10.7 fL 9.5-12.9 NRBC/100 WBC (test code = 9634473077) See_Comment [Automated [employer] ssage] The system which generated this result transmitted reference range: 0.0 - 10.0 /100 WBCs. The reference range was not used to interpret this result as normal/abnormal. NRBC x10^3 (test code = 1416226088) <0.01 See_Comment [Automated me ssage] The system which generated this result transmitted reference range: 10*3/?L. The reference range was not used to interpret this result as normal/abnormal. GRAN MAT (NEUT) % (test code = 770-8) 62.3 % IMM GRAN % (test code = 2917280609) 0.40 % LYMPH % (test code = 736-9) 28.7 % MONO % (test code = 5905-5) 5.5 % EOS % (test code = 713-8) 2.4 % BASO % (test code = 706-2) 0.7 % GRAN MAT x10^3(ANC) (test code = 2044667936) 6.62 10*3/uL 1.88-7.09 IMM GRAN x10^3 (test code = 5571412524) 0.04 10*3/uL 0.00-0.06 LYMPH x10^3 (test code = 731-0) 3.05 10*3/uL 1.32-3.29 MONO x10^3 (test code = 742-7) 0.58 10*3/uL 0.33-0.92 EOS x10^3 (test code = 711-2) 0.25 10*3/uL 0.03-0.39 BASO x10^3 (test code = 704-7) 0.07 10*3/uL 0.01-0.07 [facility] SCREENING TOMOSYNTHESIS [id number] 17:21:00Examination:BI SCREENING TOMOSYNTHESIS BILATERAL History:Patient is 39 year old and is seen for: ?First screening mammogram age 39. Computer-aided detection (CAD) utilized. This is patient's baselineexam. Findings:The breasts are almost entirely fatty. LeftThere is focal asymmetry in the upper outer quadrant posteriorly at a distance of 10 cm from the nipple. RightThere is no evidence of suspicious masses, calcifications, or other abnormal findings in the right breast. Impression:LEFT BREAST focal asymmetry in the upper outer quadrant posteriorly at a distance of 10 cm from the nipple. Recommendation:Tomosynthesis spot compression with possible ultrasound - LeftAnnual mammographic follow-up - Right BI-RADS Category:Left: 0 - Incomplete: Needs Additional Imaging EvaluationRight: 1 - NegativeOverall: 0 - Incomplete: Needs [facility]Un[facility]
--- NOTE | 2023-05-26 14:39 | ER ---
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 patient complains of pain to her right ring finger, and right hand. patient reports her pain is currently a 10/10 on the pain scale. Coronavirus screen: At this time, the client does not indicate any symptoms associated with coronavirus-19. Ebola Screen: No symptoms or risks identified at this time. Initial Sepsis Screen: Does the patient meet any 2 criteria? No. Patient's initial sepsis screen is negative. Does the patient have a suspected source of infection? No. Patient's initial sepsis screen is negative. Risk Assessment: Do you want to hurt yourself or someone else? Patient reports no desire to harm self or others. Onset of symptoms was May 26, 2023. 13:27 Method Of Arrival: Ambulatory ap3 13:27 Acuity: MARILU 4 ap3 Triage Assessment: 13:29 General: Appears uncomfortable, Behavior is cooperative, appropriate for age. Pain: ap3 Complains of pain in right ring finger Pain radiates to right hand Pain currently is 10 out of 10 on a pain scale. Pain began suddenly. Neuro: Level of Consciousness is awake, alert, obeys commands, Oriented to person, place, time, situation, Appropriate for age. Cardiovascular: Patient's skin is warm and dry. Respiratory: Airway is patent Respiratory effort is even, unlabored, Respiratory pattern is regular, symmetrical. Musculoskeletal: Reports pain in right hand. Injury Description: Crush injury sustained to right ring finger is bruising located to right ring finger. patient got hand caught in closet door was sustained less than 30 minutes ago. Historical: - Allergies: 13:28 HYDROCODONE; ap3 - PMHx: 13:28 Endometrosis; GERD; Stomach Ulcers; ap3 - Immunization history:: Client reports having NOT received the Covid vaccine. Last tetanus immunization: 2017. Flu vaccine is not up to date. - Social history:: Smoking status: Patient denies any tobacco usage or history of. - Family history:: not pertinent. - Hospitalizations: : No recent hospitalization is reported. Screenin:30 [facility] ED Fall Risk Assessment (Adult) History of falling in the last 3 months, ap3 including since admission No falls in past 3 months (0 pts). Abuse screen: Denies threats or abuse. Nutritional screening: No deficits noted. Tuberculosis screening: No symptoms or risk factors identified. Assessment: 13:44 General: Appears in no apparent distress. comfortable, Behavior is calm, cooperative, ld1 appropriate for age. Pain: Complains of pain in right hand and right ring finger Pain does not radiate. Pain currently is 10 out of 10 on a pain scale. Quality of pain is described as throbbing. Neuro: Level of Consciousness is awake, alert, obeys commands, Oriented to person, place, time, situation. Cardiovascular: Capillary refill < 3 seconds Patient's skin is warm and dry. Respiratory: Airway is patent Respiratory effort is even, unlabored. GI: Abdomen is flat, non-distended. : No signs and/or symptoms were reported regarding the genitourinary system. EENT: No signs and/or symptoms were reported regarding the EENT system. Derm: Bruising that is on right hand and right ring finger. Musculoskeletal: No signs and/or symptoms reported regarding the musculoskeletal system. Vital Signs: 13:27 BP 138 / 96; Pulse 93; Resp 21; Temp 97.3; Pulse Ox 98% ; Weight 95.25 kg; Height 5 ft. ap3 0 in. ; Pain 10/10; 13:27 Body Mass Index 41.01 (95.25 kg, 152.4 cm) ap3 13:27 Pain Scale: Adult ap3 ED Course: 13:24 Patient arrived in ED. kj1 13:28 Triage completed. ap3 13:30 Rober Ac MD is Attending Physician. rn 13:30 Arm band placed on left wrist. ap3 13:37 Yamileth Donovan, CHANG is Primary Nurse. ld1 13:44 Patient has correct armband on for positive identification. Placed in gown. Bed in low ld1 position. Call light in reach. Side rails up X2. Pulse ox on. NIBP on. Door closed. Noise minimized. Warm blanket given. 13:44 No provider procedures requiring assistance completed. Inserted saline lock: 20 gauge ld1 in right antecubital area, using aseptic technique. 14:11 XRAY Hand RIGHT 3 View In Process Unspecified. EDMS 14:39 Kraig Bradley MD is Referral Physician. rn 15:04 IV discontinued, intact, bleeding controlled, No redness/swelling at site. ld1 Administered Medications: 13:44 Drug: morphine IVP or IV 4 mg IVP once over 4 mins Route: IVP; Infused Over: 4 mins; ld1 Site: right antecubital; 13:44 Drug: Ondansetron IVP 4 mg IVP once; over 2 minutes Route: IVP; Site: right antecubital;ld1 Medication: 13:44 VIS not applicable for this client. ld1 Outcome: 14:39 Discharge ordered by . rn 15:04 Discharged to home ambulatory, ld1 15:04 Condition: stable 15:04 Discharge instructions given to patient, family, Instructed on discharge instructions, follow up and referral plans. medication usage, Demonstrated understanding of instructions, follow-up care, medications, Prescriptions given X 2, 15:04 Patient left the ED. ld1 Signatures: Dispatcher [employer] EDMS Rober Ac MD MD rn Prokisch, Amanda, RN RN ap3 Jackson, Kandis kj1 Yamileth Donovan RN RN ld1
--- NOTE | 2023-05-26 14:40 | EDPHYS ---
Physician Documentation [facility] Name: Yolanda Saucedo Age: 42 yrs Sex: Female : 1980 Arrival Date: 05/26/2023 Time: 13:23 Bed 12 Private MD: ED Physician Rober Ac HPI: 05/26 13:37 This 42 yrs old Female presents to ER via Ambulatory with complaints of Hand Injury, rn Hand Pain. 13:37 The patient or guardian reports injury, pain. The patient or guardian reports a rn contusion. The complaints affect the Tip of right 4th finger. Onset: The symptoms/episode began/occurred just prior to arrival. Modifying factors: The symptoms are alleviated by nothing, the symptoms are aggravated by nothing. Severity of symptoms: At their worst the symptoms were moderate, in the emergency department the symptoms are unchanged. The patient has not experienced similar symptoms in the past. Patient reports crushed right fourth digit in between door and shelf. Not on blood thinners. Reports throbbing pain. No open wounds. Historical: - Allergies: 13:28 HYDROCODONE; ap3 - PMHx: 13:28 Endometrosis; GERD; Stomach Ulcers; ap3 - Immunization history:: Client reports having NOT received the Covid vaccine. Last tetanus immunization: 2017. Flu vaccine is not up to date. - Social history:: Smoking status: Patient denies any tobacco usage or history of. - Family history:: not pertinent. - Hospitalizations: : No recent hospitalization is reported. ROS: 13:37 Constitutional: Negative for fever, chills, and weight loss, MS/Extremity: Positive for rn right fourth fingertip injury Neuro: Negative for weakness or numbness Exam: 13:37 Constitutional: This is a well developed, well nourished patient who is awake, alert, rn appears in pain, holding right hand up MS/ Extremity: Pulses equal, no cyanosis. Distal right fourth fingertip with ecchymosis and mild swelling. No open wounds. No subungual hematoma Vital Signs: 13:27 BP 138 / 96; Pulse 93; Resp 21; Temp 97.3; Pulse Ox 98% ; Weight 95.25 kg; Height 5 ft. ap3 0 in. ; Pain 10/10; 13:27 Body Mass Index 41.01 (95.25 kg, 152.4 cm) ap3 13:27 Pain Scale: Adult ap3 MDM: 13:30 Patient medically screened. rn 14:38 Differential diagnosis: closed fracture, contusion. Data reviewed: vital signs, nurses rn notes, radiologic studies, plain films, and as a result, I will discharge patient. Counseling: I had a detailed discussion with the patient and/or guardian regarding the historical points, exam findings, and any diagnostic results supporting the discharge/admit diagnosis, radiology results, the need for outpatient follow up, to return to the emergency department if symptoms worsen or persist or if there are any questions or concerns that arise at home. Response to treatment: the patient's symptoms have mildly improved after treatment, and as a result, I will discharge patient. Special discussion: I discussed with the patient/guardian in detail that at this point there is no indication for admission to the hospital. It is understood, however, that if the symptoms persist or worsen the patient needs to return immediately for re-evaluation. 05/26 13:36 Order name: XRAY Hand RIGHT 3 View; Complete Time: 14:54 rn 05/26 13:36 Order name: IV Start; Complete Time: 13:44 rn 05/26 14:38 Order name: Splint - Finger; Complete Time: 15:04 rn Administered Medications: 13:44 Drug: morphine IVP or IV 4 mg IVP once over 4 mins Route: IVP; Infused Over: 4 mins; ld1 Site: right antecubital; 13:44 Drug: Ondansetron IVP 4 mg IVP once; over 2 minutes Route: IVP; Site: right antecubital;ld1 Disposition Summary: 05/26/23 14:39 Discharge Ordered Notes: Location: Home rn Problem: new rn Symptoms: have improved rn Condition: Stable rn Diagnosis - Nondisplaced fracture of distal phalanx of left ring finger rn Followup: rn - With: Kraig Bradley MD - When: As needed - Reason: Recheck today's complaints, Re-evaluation by your physician Discharge Instructions: - Discharge Summary Sheet rn - Finger Fracture, Adult rn Forms: - Medication Reconciliation Form rn - Thank You Letter rn - Antibiotic director furniture - Prescription Opioid Use rn - Patient Portal Instructions rn - Leadership Thank You Letter rn Prescriptions: - acetaminophen-codeine 300-30 mg Oral tablet - take 1 tablet ORAL route every 8 hours As needed as needed for pain; 12 tablet; rn Refills: 0, Product Selection Permitted - gabapentin 300 mg Oral capsule - take 1 capsule ORAL route every 12 hours As needed; 14 capsule; Refills: 0, rn Product Selection Permitted Signatures: Dispatcher [employer] Rober Almaraz MD MD rn Prokisch, Amanda, RN RN ap3 Yamileth Donovan RN RN ld1 Corrections: (The following items were deleted from the chart) 13:39 13:37 Constitutional: Negative for fever, chills, and weight loss, MS/Extremity: rn Positive for right fourth fingertip injury rn 13:39 13:37 Constitutional: This is a well developed, well nourished patient who is awake, rn alert, and in no acute distress. rn
--- NOTE | 2023-05-26 14:51 | RAD REPORT ---
EXAM DESCRIPTION: RAD - Hand Right 3 View - 05/26/2023 2:09 pm CLINICAL HISTORY: Right hand pain status post injury FINDINGS: Nondisplaced fracture fourth terminal tuft. No dislocation
[2023-05-26 16:27] VITALS: BP 138/96; TEMP 97.3; O2SAT 98
== END ==
LOC: ER 13:23
DX: S62.665A Nondisplaced fracture of distal phalanx of left ring finger, initial encounter for closed fracture (principal); W23.0XXA Caught, crushed, jammed, or pinched between moving objects, initial encounter; Z88.5 Allergy status to narcotic agent
CPT/HCPCS: 96374; 96375; 99285; J2405